=== PATIENT | female | born 1985 | race Caucasian/White ===

== ENCOUNTER 2016-02-27 13:53 | Emergency (ER) | payer MEDICAID ==
[~2016-02-27] VITALS: Wt 69.0 kg
[~2016-02-27 13:53] MED LIST: DICY10CA60 PO; DOCU-144 PO; FER325 PO; IBUP-1542 PO; MEDR2.5T21 PO; ZOF8 PO
[2016-02-27 15:14] LABS: BASOPHILS % 0.4 % (0.0-2.0); EOSINOPHILS # 0.2 10^3/ul (0.0-0.5); EOSINOPHILS % 1.5 % (0.0-7.0); HEMOGLOBIN 12.4 g/dl (12.0-16.0); LYMPHOCYTES # 2.4 10^3/ul (0.8-2.9); LYMPHOCYTES % 24.3 % (15.0-51.0); MEAN CORPUSCULAR HEMOGLOBIN 29.8 pg (29.0-33.0); MEAN CORPUSCULAR HGB CONC 33.5 g/dl (32.0-37.0); MEAN CORPUSCULAR VOLUME 89.1 fl (82.0-101.0); MEAN PLATELET VOLUME 8.3 fl (7.4-10.4); MONOCYTE # 0.6 10^3/ul (0.3-0.9); MONOCYTES % 6.3 % (0.0-11.0); NEUTROPHIL # 6.7 10^3/ul (1.6-7.5); NEUTROPHILS % 67.5 % (39.0-77.0); PLATELET COUNT 279 10^3/UL (140-440); RED BLOOD COUNT 4.15 10^6/ul (4.20-5.40); RED CELL DISTRIBUTION WIDTH 16.5 % (11.5-14.5); UNCORRECTED WBC 9.9 10^3/ul (4.8-10.8); WHITE BLOOD COUNT 9.9 10^3/ul (4.8-10.8)
[2016-02-27 15:15] LABS: ADD UMIC YES; URINE BILIRUBIN (Dip) NEGATIVE (NEGATIVE); URINE BLOOD (Dip) 3+ (NEGATIVE); URINE COLOR LT. YELLOW (YELLOW); URINE GLUCOSE (Dip) NEGATIVE (NEGATIVE); URINE KETONES (Dip) NEGATIVE (NEGATIVE); URINE LEUKOCYTE ESTERASE (Dip) TRACE (NEGATIVE); URINE NITRITE (Dip) NEGATIVE (NEGATIVE); URINE TOTAL PROTEIN (Dip) NEGATIVE (NEGATIVE); URINE UROBILINOGEN (Dip) 0.2 E.U./dL (0.1-1.0)
[2016-02-27 15:26] LABS: SQUAMOUS EPITHELIAL CELL,UR MODERATE; URINE RBCS >200 /HPF (0)
[2016-02-27 15:27] LABS: BACTERIA,URINE MODERATE; CONDITION 1; LH ANALYZER COMMENTS 1
--- NOTE | 2016-02-27 16:27 | RADRPT ---
PROCEDURE: US OB. CLINICAL INDICATION: Vaginal spotting TECHNIQUE: Transabdominal and transvaginal views of the pelvis were obtained. COMPARISON: 10/22/15 FINDINGS: The uterus is enlarged and heterogeneous with multiple fibroids, measuring up to 5.3 cm. There is a single intrauterine gestation with a CRL measuring 2.6 cm, corresponding to a gestational age of 9 weeks and 2 days. The heart rate is noted at 185 bpm. There is a complex hypoechoic fluid collection adjacent to the gestational sac, measuring 4.5 x 3.5 x 3.7 cm, consistent with subchorionic hemorrhage. The right ovary measures 4.8 x 2.8 x 3.5 cm. The left ovary measures 4.2 x 1.8 x 2.7 cm. No ovarian or adnexal mass lesion is seen. There is no free fluid. RPTAT: AA IMPRESSION: Single live intrauterine with an estimated gestational age of 9 weeks and 2 days, based on ultrasound measurements. Large complex area of subchorionic hemorrhage. Multiple fibroids within the uterus. Close follow-up is recommended. .Denis Luke MD, MD Date Time Electronically viewed and signed by .Denis Luke MD, on 02/27/2016 16:27 .S/
[2016-02-27] MEDS ORDERED: ACET325T33 PO (17:27)
--- NOTE | 2016-02-27 17:39 | ERD ---
ER Documentation Chief Complaint Date/Time DATE: 02/27/16 TIME: 17:32 Chief Complaint VAG BLEED FOR THE PAST FEW HOURS. NO N/V. 9 WKS PREG HPI 31-year-old female who is a with no significant past medical history presents the ED complaining of vaginal bleeding that occurred earlier today. States that she had to change 2 pads worth of bright red blood. Reports that her last menses was on December 19, 2015. States that her NURSING PROFESSOR is Dr. Trevin Gibbs. Denies fever, chills, abdominal pain, nausea, vomiting, chest pain , shortness of breath, vaginal discharge. ROS All systems reviewed and are negative except as per history of present illness. Medications Home Meds Active Scripts Acetaminophen* (Tylenol*) 325 Mg Tablet, 1 TAB PO Q6 Y for PAIN AND OR ELEVATED TEMP, #20 TAB Prov:HERO REBOLLAR PA-C 02/27/16 Ibuprofen* (Motrin*) 600 Mg Tab, 600 MG PO Q6H Y for PAIN AND OR ELEVATED TEMP, #30 TAB Prov:BRENDAN BULL NP 10/22/15 Docusate Sodium* (Colace*) 100 Mg Capsule, 100 MG PO TID, #30 CAP Prov:BRENDAN BULL NP 10/22/15 Ferrous Sulfate* (Ferrous Sulfate*) 325 Mg Tabec, 325 MG PO BID, #60 TAB Prov:BRENDAN BULL NP 10/22/15 Dicyclomine Hcl* (Bentyl*) 10 Mg Capsule, 10 MG PO QID, #10 CAP Prov:MARYCARMEN RYAN PA-C 04/16/15 Ondansetron Hcl* (Zofran* ODT) 8 mg -ODT Tab.disper, 8 MG PO Q6 Y for NAUSEA AND /OR VOMITING, #10 TAB Prov:MARYCARMEN RYAN PA-C 04/16/15 Reported Medications Medroxyprogesterone Acetate* (Medroxyprogesterone Acetate*) Unknown Strength Tablet, PO DAILY, TAB 10/22/15 Allergies Allergies: Coded Allergies: No Known Drug Allergies (Verified Allergy, 04/05/13) PMhx/Soc Medical and Surgical Hx: pt denies Medical Hx, pt denies Surgical Hx History of Surgery: No Anesthesia Reaction: No Hx Neurological Disorder: No Hx Respiratory Disorders: No Hx Cardiac Disorders: No Hx Psychiatric Problems: No Hx Miscellaneous Medical Probl: Yes ( 2, Para 1, living 1) Hx Alcohol Use: No Hx Substance Use: No Hx Tobacco Use: No Smoking Status: Never smoker Physical Exam Vitals Vital Signs Date Time Temp Pulse Resp B/P Pulse Ox O2 Delivery O2 Flow Rate FiO2 02/27/16 14:06 98.8 88 20 129/77 99 Physical Exam Const: Dyx-yyx-lcmmcxend, well-nourished. In no acute distress. Head: Atraumatic, normocephalic Eyes: Normal Conjunctiva without injection. No purulent discharge. ENT: Normal external ear, nose. Moist oropharynx without tonsillar exudates. Non -erythematous pharynx. Uvula midline. No drooling. No trismus. Neck: No cervical midline tenderness. Full range of motion. No meningismus. No cervical lymphadenopathy. No JVD. Resp: Clear to auscultation bilaterally. No wheezing, rhonchi, rales, or crackles. No accessory muscle use. No retractions. Cardio: Regular rate and rhythm. No murmurs, rubs or gallops. Abd: Soft, slight tenderness to palpation of the pelvic region, non distended. Normal bowel sounds. No palpable masses. No rebound tenderness. No guarding. Negative McBurney's point. Negative psoas sign. Negative obturator sign. Skin: No petechiae or rashes Back: No midline tenderness. No CVA tenderness. Ext: No cyanosis, or edema. Neur: Awake and alert. Normal gait. Normal coordination. Psych: Normal Mood and Affect Result Diagram: 02/27/16 1502 Results 24 hrs Laboratory Tests Test 02/27/16 15:02 Basophils # 0.010^3/ul Basophils % 0.4% Beta HCG, Quantitative 37890.0mIU/ml Blood Morphology Comment Eosinophils # 0.210^3/ul Eosinophils % 1.5% Hematocrit 37.0% Hemoglobin 12.4g/dl Lymphocytes # 2.410^3/ul Lymphocytes % 24.3% Mean Corpuscular Hemoglobin 29.8pg Mean Corpuscular Hemoglobin Concent 33.5g/dl Mean Corpuscular Volume 89.1fl Mean Platelet Volume 8.3fl Monocytes # 0.610^3/ul Monocytes % 6.3% Neutrophils # 6.710^3/ul Neutrophils % 67.5% Nucleated Red Blood Cells # 0.010^3/ul Nucleated Red Blood Cells % 0.0/100WBC Platelet Count 61861^3/UL Red Blood Count 4.1510^6/ul Red Cell Distribution Width 16.5% Urine Bacteria MODERATE Urine Bilirubin NEGATIVE Urine Clarity SLIGHTLY CLOUDY Urine Color LT. YELLOW Urine Glucose NEGATIVE% Urine Hemoglobin 3+ Urine Ketones NEGATIVE Urine Leukocyte Esterase TRACE Urine Microscopic RBC >200/HPF Urine Microscopic WBC 0-2/HPF Urine Nitrite NEGATIVE Urine Specific [place] 1.020 Urine Squamous Epithelial Cells MODERATE Urine Total Protein NEGATIVE Urine Urobilinogen 0.2 E.U./dL Urine pH 7.0 White Blood Count 9.910^3/ul Procedures/MDM This is a 31-year-old female with no significant past medical history is a presents the ED complaining of vaginal bleeding that started earlier today. Patient is afebrile and nontoxic-appearing. Patient has normal vital signs. An ultrasound, beta-hCG, CBC, type and RH, UA was ordered to evaluate patient. CBC: No evidence of severe infection or anemia Urine: No elevation in nitrites, leukocyte esterase, hematuria. No evidence of UTI Rh: O positive No indication for Rhogam at this time. beta Hc PROCEDURE: US OB. CLINICAL INDICATION: Vaginal spotting TECHNIQUE: Transabdominal and transvaginal views of the pelvis were obtained. COMPARISON: 10/22/15 FINDINGS: The uterus is enlarged and heterogeneous with multiple fibroids, measuring up to 5.3 cm. There is a single intrauterine gestation with a CRL measuring 2.6 cm, corresponding to a gestational age of 9 weeks and 2 days. The heart rate is noted at 185 bpm. There is a complex hypoechoic fluid collection adjacent to the gestational sac, measuring 4.5 x 3.5 x 3.7 cm, consistent with subchorionic hemorrhage. The right ovary measures 4.8 x 2.8 x 3.5 cm. The left ovary measures 4.2 x 1.8 x 2.7 cm. No ovarian or adnexal mass lesion is seen. There is no free fluid. RPTAT: AA IMPRESSION: Single live intrauterine with an estimated gestational age of 9 weeks and 2 days, based on ultrasound measurements. Large complex area of subchorionic hemorrhage. Multiple fibroids within the uterus. Close follow-up is recommended. Patient's bleeding symptoms have stabilized while in the department. Low suspicion for symptomatic anemia, ectopic , sepsis, PID, appendicitis, ovarian torsion, tubo-ovarian abscess, surgical abdomen, or other emergent conditions. Patient was educated that there is a risk for threatened . Discharge medications: Tylenol Patient to follow up with NURSING PROFESSOR in 2 days for further evaluation and treatment. Pelvic rest was recommended. No heavy lifting. Patient is to return sooner to the ED for any worsening symptoms. Patient's questions were answered. Patient understood and agreed with discharge plan. Departure Diagnosis: Primary Impression: Vaginal bleeding in patient at less than 20 weeks ges... Additional Impressions: Fibroid Uterine leiomyoma location: unspecified location Qualified Code: D25.9 - Uterine leiomyoma, unspecified location Subchorionic hemorrhage in first trimester Condition: Stable Patient Instructions: Bleeding During Early , Uterine Fibroids Referrals: [facility] YOU HAVE RECEIVED A MEDICAL SCREENING EXAM AND THE RESULTS INDICATE THAT YOU DO NOT HAVE A CONDITION THAT REQUIRES URGENT TREATMENT IN THE EMERGENCY DEPARTMENT. FURTHER EVALUATION AND TREATMENT OF YOUR CONDITION CAN WAIT UNTIL YOU ARE SEEN IN YOUR DOCTORS OFFICE WITHIN THE NEXT 1-2 DAYS. IT IS YOUR RESPONSIBILITY TO MAKE AN APPOINTMENT FOR FOLOW-UP CARE. IF YOU HAVE A PRIMARY DOCTOR --you should call your primary doctor and schedule an appointment IF YOU DO NOT HAVE A PRIMARY DOCTOR YOU CAN CALL OUR PHYSICIAN REFERRAL HOTLINE AT IF YOU CAN NOT AFFORD TO SEE A PHYSICIAN YOU CAN CHOSE FROM THE FOLLOWING [facility] [address] [facility] [address] [facility] [address] [facility] [address] [facility] [address] [facility]. [facility]. [address] [facility]. [facility] YOU HAVE RECEIVED A MEDICAL SCREENING EXAM AND THE RESULTS INDICATE THAT YOU DO NOT HAVE A CONDITION THAT REQUIRES URGENT TREATMENT IN THE EMERGENCY DEPARTMENT. FURTHER EVALUATION AND TREATMENT OF YOUR CONDITION CAN WAIT UNTIL YOU ARE SEEN IN YOUR DOCTORS OFFICE WITHIN THE NEXT 1-2 DAYS. IT IS YOUR RESPONSIBILITY TO MAKE AN APPOINTMENT FOR FOLOW-UP CARE. IF YOU HAVE A PRIMARY DOCTOR --you should call your primary doctor and schedule and appointment IF YOU DO NOT HAVE A PRIMARY DOCTOR YOU CAN CALL OUR PHYSICIAN REFERRAL HOTLINE AT . IF YOU CAN NOT AFFORD TO SEE A PHYSICIAN YOU CAN CHOSE FROM THE FOLLOWING [facility] INSTITUTIONS: [facility] [address] [place] [address] [facility] [address] [place] [address] [facility] [address] [place] [address] NURSING [place] [address] [facility] [address] [place] [address]LE[address]KA[address] [place] [address] [address] AGGARW[address] [place] [address] [place] [address] [address] [facility] [address] [facility] [address] [address] [address] [place] [address] [facility] [address] [place] [address] [facility] [address] - [address] [facility] [address] [address] [address] [facility] [address], [facility] [address] [address] [facility] [address] [place] [address] [facility] Hours: 8:00 am - 5:00 pm Additional Instructions: Seguimiento con ginecoobstetra en 2 kaufman de ms atencin y tratamiento. Regrese a estas instalaciones si no se mejora tamiko esperbamos o tamiko le dijimos. HERO REBOLLAR PA-C Feb 27, 2016 17:39
[2016-02-27 17:44] VITALS: BP 119/67; PULSE 79; RESP 20; TEMP 97.8
== END 2016-02-27 17:45 | disposition home or self-care (01) ==
LOC: FTE 13:53
DX: O20.9 Hemorrhage in early pregnancy, unspecified (principal); O34.11 Maternal care for benign tumor of corpus uteri, first trimester; R10.2 Pelvic and perineal pain; Z3A.09 9 weeks gestation of pregnancy
CPT/HCPCS: 36415; 76801; 81001; 84702; 85025; 86900; 86901; Z7502; 81003

== ENCOUNTER 2017-08-29 07:52 | Emergency (ER) | END 2017-08-29 12:30 | disposition home or self-care (01) ==

== ENCOUNTER 2018-05-29 11:19 | Emergency (ER) | payer MEDICAID ==
[~2018-05-29] VITALS: Wt 50.0 kg
[~2018-05-29 11:19] MED LIST changes: +ACET325T33 PO; +DICY10CA40 PO; -DICY10CA60 PO; +IBUP800T48 PO
[2018-05-29 11:23] VITALS: BP 131/74; PULSE 86; RESP 18
[2018-05-29] MEDS ORDERED: CEPH-443 PO (12:58)
[2018-05-29] MEDS ORDERED: IBUP-1561 PO (12:58)
[2018-05-29] MEDS ORDERED: IBUPROFEN 200 MG TAB PO ONE (13:00)
[2018-05-29] MEDS ORDERED: CEPHALEXIN 500 MG CAP PO ONE (13:00)
--- NOTE | 2018-05-29 13:01 | ERD ---
ER Documentation Chief Complaint Chief Complaint FRECUENT URINATION X 1 WEEK HPI 33-year-old female presents with sensation of urinary frequency and mild dysuria. She also has low back pain patient has fevers, vomiting, abdominal pain. Last menstrual periods 1 week ago. Denies . Denies vaginal discharge or bleeding currently. ROS All systems reviewed and are negative except as per history of present illness. Medications Home Meds Active Scripts Cephalexin* (Keflex*) 500 Mg Capsule, 500 MG PO QID for 5 Days, CAP Prov:ALISSA GAMBOA MD 05/29/18 Ibuprofen* (Motrin*) 400 Mg Tab, 400 MG PO Q6, #15 TAB Prov:ALISSA GAMBOA MD 05/29/18 Ibuprofen* (Motrin*) 800 Mg Tab, 800 MG PO Q6H PRN for PAIN AND OR ELEVATED T EMP, #30 TAB Prov:ROXY DURÁN 08/29/17 Acetaminophen* (Tylenol*) 325 Mg Tablet, 1 TAB PO Q6 PRN for PAIN AND OR ELEVATED TEMP, #20 TAB Prov:HERO REBOLLAR PA-C 02/27/16 Ibuprofen* (Motrin*) 600 Mg Tab, 600 MG PO Q6H PRN for PAIN AND OR ELEVATED TEMP, #30 TAB Prov:BRENDAN BULL NP 10/22/15 Docusate Sodium* (Colace*) 100 Mg Capsule, 100 MG PO TID, #30 CAP Prov:BRENDAN BULL NP 10/22/15 Ferrous Sulfate* (Ferrous Sulfate*) 325 Mg Tabec, 325 MG PO BID, #60 TAB Prov:BRENDAN BULL NP 10/22/15 Dicyclomine HCl (Dicyclomine HCl) 10 Mg Capsule, 10 MG PO QID, #10 CAP Prov:MARYCARMEN RYAN PA-C 04/16/15 Ondansetron Hcl* (Zofran* ODT) 8 mg -ODT Tab.disper, 8 MG PO Q6 PRN for NAUSEA AND/OR VOMITING, #10 TAB Prov:MARYCARMEN RYAN PA-C 04/16/15 Reported Medications Medroxyprogesterone Acetate* (Medroxyprogesterone Acetate*) Unknown Strength Tablet, PO DAILY, TAB 10/22/15 Allergies Allergies: Coded Allergies: No Known Drug Allergies (Verified Allergy, Unknown, 05/29/18) PMhx/Soc History of Surgery: No Anesthesia Reaction: No Hx Neurological Disorder: No Hx Respiratory Disorders: No Hx Cardiac Disorders: No Hx Psychiatric Problems: No Hx Miscellaneous Medical Probl: Yes ( 2, Para 1, living 1) Hx Alcohol Use: No Hx Substance Use: No Hx Tobacco Use: No Smoking Status: Never smoker FmHx Family History: No diabetes, No coronary disease, No other Physical Exam Vitals Vital Signs Date Temp Pulse Resp B/P (MAP) Pulse Ox O2 O2 Flow FiO2 Time Delivery Rate 05/29/18 98.1 86 18 131/74 99 11:23 (93) Physical Exam Const: No acute distress Head: Atraumatic Eyes: Normal Conjunctiva ENT: Normal External Ears, Nose and Mouth. Neck: Full range of motion. No meningismus. Resp: Clear to auscultation bilaterally Cardio: Regular rate and rhythm, no murmurs Abd: Soft, non tender, non distended. Normal bowel sounds Skin: No petechiae or rashes Back: No midline or flank tenderness. Minimal tenderness left L2-L3 area. Negative straight leg raise. Ext: No cyanosis, or edema Neur: Awake and alert Psych: Normal Mood and Affect Results 24 hrs Laboratory Tests Test 05/29/18 12:25 05/29/18 12:33 Urine Color STRAW Urine Clarity CLEAR Urine pH 6.0 Urine Specific [place] 1.011 Urine Ketones NEGATIVE mg/dL Urine Nitrite NEGATIVE mg/dL Urine Bilirubin NEGATIVE mg/dL Urine Urobilinogen NEGATIVE mg/dL Urine Leukocyte Esterase TRACE Faisal/ul Urine Microscopic RBC 1 /HPF Urine Microscopic WBC 1 /HPF Urine Bacteria FEW /HPF Urine Hemoglobin NEGATIVE mg/dL Urine Glucose NEGATIVE mg/dL Urine Total Protein NEGATIVE mg/dl POC Beta HCG, Qualitative NEGATIVE Current Medications Medications Dose Sig/Shmuel Start Time Status Last (Trade) Ordered Route PRN Stop Time Admin Dose Reason Admin Ibuprofen 400 mg ONCE ONCE 05/29/18 (Motrin) PO 13:00 05/29/18 13:01 Cephalexin 500 mg ONCE ONCE 05/29/18 (Keflex) PO 13:00 05/29/18 13:01 Procedures/MDM Urine shows faint signs of infection. hCG negative. Patient presents with urinary frequency mild dysuria. She has low back pain but there is no current signs or symptoms to suggest flank pain or pyelonephritis, sepsis, abdominal pain surgical abdomen. Doubt tubo-ovarian abscess. Occult cervicitis consideration for patient may follow-up with primary doctor for further evaluation treatment. No current evidence to suggest PID or significant pain. . Patient was treated empirically with Keflex, ibuprofen, recommendations for primary care follow-up and return precautions. The patient was stable with no new complaints during the ER course. Clinically, there is no current evidence to suggest meningitis, sepsis, acute abdomen, pneumonia, stroke, acute coronary syndrome, pulmonary embolism, aortic dissection or any other emergent condition appearing to require further evaluation or hospitalization. Patient counseled regarding my diagnostic impression and care plan. Prior to discharge all questions answered. Pt agrees with treatment plan and understands strict return precautions. Pt is instructed to follow up with primary care provider within 24- 48 hours. Precautionary instructions provided including instructions to return to the ER if not improving or for any worsening or changing symptoms or concerns. Departure Diagnosis: Primary Impression: Dysuria Condition: Stable Patient Instructions: Dysuria, Urinary Tract Infections in Women Referrals: NO PRIMARY,CARE PHYSICIAN (PCP) Additional Instructions: HAY POQUITO INFECCION Y VAMOS A TRATAR. Cheque otro vez con sims doctor primario en el proximo rodríguez or regresa para mas o nueva simptomas. ALISSA GAMBOA MD May 29, 2018 13:01
== END 2018-05-29 13:27 | disposition home or self-care (01) ==
LOC: FTE 11:19
DX: R30.0 Dysuria (principal)
CPT/HCPCS: 81001; 81025; Z7502; Z7610; 99283

== ENCOUNTER 2018-06-07 00:15 | Emergency (ER) | payer MEDICAID, OTHER ==
[~2018-06-07] VITALS: Ht 162.6 cm; Wt 59.1 kg
[~2018-06-07 00:15] MED LIST changes: +CEPH-443 PO; +IBUP-1561 PO
[2018-06-07 00:16] VITALS: Ht 162.6 cm; Wt 59.1 kg
--- NOTE | 2018-06-07 00:56 | ERD ---
ER Documentation Chief Complaint Chief Complaint LEFT SIDED FLANK PAIN; WAS SEEN FOR SAME ISSUE BEFORE HPI 33-year-old previously healthy female presenting with left flank pain. She states that for the past 10 days she has had intermittent pain in her left flank. She was here about a week ago for frequency with urination but no dysuria. At that time she was told she possibly has a UTI and was placed on Keflex and ibuprofen. She finished the Keflex without improvement of her symptoms. She denies any associated hematuria, dysuria, fever, chills, nausea, vomiting, or change in bowel habits. Her pain is worse with certain movements and radiates down her left back to her leg. She describes as a pulsating, aching pain, 6 out of 10. Not improved with ibuprofen. She has not tried anything else to relieve the pain. ROS All systems reviewed and are negative except as per history of present illness. Medications Home Meds Active Scripts Cephalexin* (Keflex*) 500 Mg Capsule, 500 MG PO QID for 5 Days, CAP Prov:ALISSA GAMBOA MD 05/29/18 Ibuprofen* (Motrin*) 400 Mg Tab, 400 MG PO Q6, #15 TAB Prov:ALISSA GAMBOA MD 05/29/18 Ibuprofen* (Motrin*) 800 Mg Tab, 800 MG PO Q6H PRN for PAIN AND OR ELEVATED TEMP, #30 TAB Prov:ROXY DURÁN 08/29/17 Acetaminophen* (Tylenol*) 325 Mg Tablet, 1 TAB PO Q6 PRN for PAIN AND OR ELEVATED TEMP, #20 TAB Prov:HERO REBOLLAR PA-C 02/27/16 Ibuprofen* (Motrin*) 600 Mg Tab, 600 MG PO Q6H PRN for PAIN AND OR ELEVATED TEMP, #30 TAB Prov:BRENDAN BULL NP 10/22/15 Docusate Sodium* (Colace*) 100 Mg Capsule, 100 MG PO TID, #30 CAP Prov:BRENDAN BULL NP 10/22/15 Ferrous Sulfate* (Ferrous Sulfate*) 325 Mg Tabec, 325 MG PO BID, #60 TAB Prov:BRENDAN BULL NP 10/22/15 Dicyclomine HCl (Dicyclomine HCl) 10 Mg Capsule, 10 MG PO QID, #10 CAP Prov:MARYCARMEN RYAN PA-C 04/16/15 Ondansetron Hcl* (Zofran* ODT) 8 mg -ODT Tab.disper, 8 MG PO Q6 PRN for NAUSEA AND/OR VOMITING, #10 TAB Prov:MARYCARMEN RYAN PA-C 04/16/15 Reported Medications Medroxyprogesterone Acetate* (Medroxyprogesterone Acetate*) Unknown Strength Tablet, PO DAILY, TAB 10/22/15 Allergies Allergies: Coded Allergies: No Known Drug Allergies (Verified Allergy, Unknown, 05/29/18) PMhx/Soc History of Surgery: No Anesthesia Reaction: No Hx Neurological Disorder: No Hx Respiratory Disorders: No Hx Cardiac Disorders: No Hx Psychiatric Problems: No Hx Miscellaneous Medical Probl: Yes ( 2, Para 1, living 1,UTI) Hx Alcohol Use: No Hx Substance Use: No Hx Tobacco Use: No Smoking Status: Never smoker FmHx Family History: No diabetes Physical Exam Vitals Vital Signs Date Temp Pulse Resp B/P (MAP) Pulse Ox O2 O2 Flow FiO2 Time Delivery Rate 06/07/18 72 16 121/67 99 Room Air 01:06 (85) 06/07/18 98.3 79 19 145/84 100 00:16 (104) Physical Exam Const: No acute distress Head: Atraumatic Eyes: Normal Conjunctiva ENT: Normal External Ears, Nose and Mouth. Neck: Full range of motion. No meningismus. Resp: Clear to auscultation bilaterally Cardio: Regular rate and rhythm, no murmurs Abd: Soft, non tender, non distended. No masses. No rebound or guarding. Normal bowel sounds Skin: No petechiae or rashes Back: No midline or flank tenderness. Pain improved with palpation of left flank and thoracic paraspinal muscles. Ext: No cyanosis, or edema Neur: Awake and alert, normal speech, no facial asymmetry, strength and sensations intact in all 4 extremities Psych: Normal Mood and Affect Procedures/MDM Patient is presenting with left flank pain of unclear etiology. She is afebrile with unremarkable vitals. Exam showed improvement of her pain with palpation of her left flank and percussion. I do not think that the patient has an acute retroperitoneal pathology. I do not suspect pyelonephritis, acute surgical abdomen, pelvic emergency, PE, or pneumonia. I discussed this with the patient. I do not think any further work-up is necessary at this time. I recommended applying heating pads to the area as well as warm baths. Return precautions w ere discussed. Patient was discharged in stable condition. Patient's blood pressure was elevated (>120/80) but appears stable without evidence of hypertension emergency or urgency. The patient was counseled about the risks of hypertension and urged to pursue outpatient monitoring and therapy within a week with their primary care physician. Departure Diagnosis: Primary Impression: Acute left flank pain Condition: Stable Patient Instructions: Flank Pain, Uncertain Cause Additional Instructions: Regresa a la josh de emergencias si mickey sintomas empeoran. SAROJ PRITCHARD MD Jun 07, 2018 00:56
[2018-06-07 01:06] VITALS: BP 121/67; PULSE 72; RESP 16
== END 2018-06-07 01:04 | disposition home or self-care (01) ==
LOC: E/R 00:15
DX: R10.9 Unspecified abdominal pain (principal); R40.2142 Coma scale, eyes open, spontaneous, at arrival to emergency department; R40.2252 Coma scale, best verbal response, oriented, at arrival to emergency department; R40.2362 Coma scale, best motor response, obeys commands, at arrival to emergency department
CPT/HCPCS: 99282